=== PATIENT | male | born 1950 | race Caucasian/White ===

== ENCOUNTER → 2018-07-25 07:23 | Outpatient (CLI) | payer BC, SELFPAY ==
--- NOTE | 2018-07-25 | DI.ECHO.S_ITS ---
[facility]---------+ [facility] +---------+ : : [address] : : : : [id number] : : : : Phone: [phone]+ Echocardiogram Report + + :Name: YOU SCOTT Study Date: 07/25/2018 Height: 70 in : :[facility] Exam Location: [facility] Weight: 290 lb : : Gender: Male BSA: 2.4 m2 : :: 1950 Age: 67 yrs BP: 114/78 mmHg: :Reason For Study: CAD : : Performed By: Trey Ross : :Referring: DAVID OTT : + + Interpretation Summary The left ventricle is mildly dilated which has not changed. Left ventricular systolic function is normal without focal wall motion abnormalities. The ejection fraction is estimated to be 55-60%. LVEF has remained unchanged. Diastolic parameters suggest a relaxation abnormality of the left ventricle, consistent with probable normal filling pressures. The right ventricle grossly appears normal in size with probable normal systolic function. Pulmonary artery pressures cannot be estimated because of the lack of a measurable TR jet velocity. Both atria are mildly dilated. There is no significant valvular heart disease. The ascending aorta is mildly enlarged, which has not significantly changed since prior study. Procedure: A two-dimensional transthoracic echocardiogram with color flow and Doppler was performed. The study quality was technically adequate. A contrast injection of Definity was performed to improve assessment of LV function. Comparison is made with the echocardiogram of 09/04/15. The subcostal views were difficult to obtain and are suboptimal in quality. The patient was in normal sinus rhythm during the exam. Left Ventricle: The left ventricle is mildly dilated. Left ventricular wall thickness is borderline increased. Left ventricular systolic function is normal without focal wall motion abnormalities. The ejection fraction is estimated to be 55-60%. Diastolic parameters suggest a relaxation abnormality of the left ventricle, consistent with probable normal filling pressures. Right Ventricle: The right ventricle grossly appears normal in size with probable normal systolic function. Atria: Both atria are mildly dilated. The interatrial septum is intact with no evidence for an atrial septal defect. Mitral Valve: The mitral valve is normal in structure and function. There is trace mitral regurgitation. Aortic Valve: The aortic valve is trileaflet. The aortic valve opens well. No aortic regurgitation is present. Tricuspid Valve: The tricuspid valve is normal in structure and function. There is trace tricuspid regurgitation. Pulmonary artery pressures cannot be estimated because of the lack of a measurable TR jet velocity. Pulmonic Valve: The pulmonic valve is normal in structure and function. There is trace pulmonic regurgitation. There is no significant valvular heart disease. Great Vessels: The aortic root is normal size. The ascending aorta is mildly enlarged. The pulmonary artery is normal size. The inferior vena cava was not well visualized. Pericardium/ Pleura There is no pericardial effusion. There is no pleural effusion. MMode/2D Measurements & Calculations LVIDd: 6.2 cm LVOT diam: 2.4 cm LVIDs: 3.7 cm Ao root diam: 3.9 cm FS: 40.5 % asc Aorta Diam: 3.9 cm EPSS: 0.51 cm Ao Arch Diam (Prox Trans): 3.5 cm IVSd: 0.98 cm LVPWd: 1.1 cm LV mahmood. diameter/BSA (cm/m^2): 2.5 LV sys. diameter/BSA (cm/m^2): 1.5 LA dimension: 5.8 cm RA long axis: 5.5 cm LA A2 area: 21.1 cm2 RA area: 22.6 cm2 LA A4 area: 29.3 cm2 RA vol: 79.7 ml LA length (vol): 5.8 cm RA : 32.6 ml/m2 LA vol: 90.6 ml LA vol index: 37.1 ml/m2 Doppler Measurements & Calculations Ao V2 max: 137.0 cm/sec LVOT Max Jaron: 91.0 cm/sec Ao V2 mean: 106.4 cm/sec LV V1 max P.3 mmHg Ao max P.5 mmHg LV V1 VTI: 20.3 cm Ao mean P.7 mmHg GUILLERMO(I,D): 3.2 cm2 Ao V2 VTI: 29.5 cm GUILLERMO(V,D): 3.1 cm2 sev ratio: 0.69 GUILLERMO indexed to BSA (cm^2/m^2): 1.3 MV E max jaron: 71.6 cm/sec PA V2 max: 94.0 cm/sec MV A max jaron: 87.2 cm/sec PA V2 mean: 64.5 cm/sec MV E/A: 0.82 PA mean P.9 mmHg Med Peak E' Jaron: 5.2 cm/sec PA pr(Accel): 9.1 mmHg E/E' med: 13.9 Lat Peak E' Jaron: 9.2 cm/sec E/E' lat: 7.8 E/e' average: 10.8 MV dec time: 0.20 sec SV(LVOT): 94.3 ml Reading Physician:EVERARDO
--- NOTE | 2018-07-25 09:02 | P.PCN_ITS ---
Cardiac Stress Test Report Referral & Results Date Patient Seen: 07/25/18 Requesting provider: David Ott Indication: Coronary artery disease Rest ECG: Unremarkable Procedure Note: Today following both written and verbal informed consent the patient was exercised according to a standard Cory protocol patient went for a total of 6 min 25 sec achieving a maximum heart rate of about 120 (motion artifact interfered with ability to determine true heart rate will while active ) maximum systolic blood pressure of to 30. This is approximately 7.0 METS. Exercise was terminated at this point because of patient fatigue and inability to continue. Patient was also given Cardiolite through a previously started Hep-Lock IV by the non licensed nuclear plant operator approximately 1 minute prior to the cessation of exercise. With exercise there was lots of motion artifact. At the immediate and exercise patient did have inferior T-wave inversions and flat mild ST segment depression as well as flat downsloping ST segment changes in leads V5 V6 mostly V6. Rare PVCs including couplets and triplets that were multifocal in origin were noted in recovery as well Functional aerobic impairment rated 10% on the sedentary scale Impression: Ischemic changes as above. Perfusion imaging to be reported separately and will presumably provide more information regarding degree of ischemia Average exercise capacity Ventricular Dysrhythmia as above Please note: Actual ECG tracings can be found in the PACS system.
--- NOTE | 2018-07-25 10:00 | DI.NM.S_ITS ---
PATIENT NAME: YOU SCOTT : 1950 EXAM DATE: 07/25/2018 8:31 ORD. : SHANE SLAUGHTER M.D. CC: MODALITY: NM PATIENT TYPE: Out CONTRAST MEDIA: STATION ID: [id number] FLUORO TIME: PROCEDURE: NM DINESH PERF SPECT REST & STR Rest and exercise myocardial perfusion SPECT with gated imaging and ejection fraction RADIOPHARMACEUTICAL: 25.1 mCi Tc-99m sestamibi IV at rest and 25.6 mCi Tc- 99m sestamibi IV at peak exercise. A 4-syl-afkhjhiu was performed. INDICATIONS: Atherosclerotic heart disease of [place] coronary arteries TECHNIQUE: Radiopharmaceutical was injected at peak stress test, and also at rest. SPECT images were obtained. SPECT myocardial perfusion images were displayed in short axis, horizontal long axis, and vertical long axis views. Gated images were reviewed using Tag'By software. COMPARISON: None. CARDIAC STRESS: A standard Cory treadmill exercise tolerance test was performed by the patient under the supervision of an attending staff. The patient exercised for 6 minutes and 25 seconds; functional aerobic impairment (DEXTER) is 10 %. Hemodynamic data: There is hypertensive blood pressure and appropriate heart rate response to exercise stress. Patient achieved 94% of maximum predicted heart rate at peak exercise. Symptoms: Patient denied chest pain during exercise. Patient has fatigue and dyspnea with exercise. EKG: There was horizontal and downsloping ST depression in the inferior and lateral leads, up to 3 mm and inferiorly at 2 mm in lateral leads at peak exercise which improved during the recovery. FINDINGS: Raw data: There is good myocardial labeling by radiotracer. No significant motion artifacts. Pkyi-yf-diocb ratio is 0.41 (normal is less than 0.38 for sestamibi tracer, and less than 0.50 for thallium tracer). Continued Report - Page 2 of 2 PATIENT NAME: YOU SCOTT : 1950 EXAM DATE: 07/25/2018 8:31 ORD. : SHANE SLAUGHTER M.D. CC: MODALITY: NM PATIENT TYPE: Out CONTRAST MEDIA: STATION ID: [id number] FLUORO TIME: Left ventricle function: Gated images demonstrate hypokinesis of the apex; Otherwise normal left ventricle wall thickening. No other segmental wall motion abnormality. No transient ischemic dilation; TID is 1.03 (normal less than 1.3). The left ventricle resting end-diastolic volume is 184 mL. Left ventricle stress ejection fraction is 53%; normal values are above 45%. Myocardial perfusion: The myocardial perfusion image quality suboptimal with significant heterogeneity in the distribution of the tracer. There is a moderate size apical anterior and apical septal defect which is present both at rest and stress. This improves with prone imaging although it does not completely resolve. There is a second perfusion defect of moderate size in the inferior and inferoseptal wall on the stress imaging with improvement at rest. IMPRESSION: -Abnormal myocardial perfusion study with evidence of reversible ischemia in the inferior wall and scar at the apex. -The treadmill portion was also abnormal with up to [address] depression in inferior and inferolateral leads. Please note the patient was significantly hypertensive at peak stress with the pressure of 230/80 mmHg. -The stress ejection fraction was 53%. The rest ejection fraction was 60% and overall the left ventricle appear slightly hypokinetic on the stress of compared to rest. Please note that this was a 2-day study. - Afmp-bp-fqhda ratio is 0.41 (normal is less than 0.38 for sestamibi tracer) Dictated by: Crow Cantrell on 07/27/2018 at 0:01 Approved by: Crow Cantrell on 07/27/2018 at 0:18
== END ==
PROVIDERS: Family Provider Family Medicine; PCP Family Medicine; Visit Provider Internal Medicine Cardiovascular Disease
DX: I25.9 Chronic ischemic heart disease, unspecified (principal); I25.10 Atherosclerotic heart disease of native coronary artery without angina pectoris; I47.0 Re-entry ventricular arrhythmia
CPT/HCPCS: 78452; 93016; 93017; 93018; A9502; C8929; Q9957

== ENCOUNTER → 2019-12-25 09:10 | Outpatient (CLI) | payer OTHER, SELFPAY ==
--- NOTE | 2019-12-25 | DI.ECHO.S_ITS ---
[facility] +---------+ [facility] +---------+ : : [address] : [address] : : : : [id number] : : : : Phone: [phone]+ Echocardiogram Report + + :Name: YOU SCOTT Study Date: 12/25/2019 Height: 70 in : :[facility] Weight: 290 lb : : Gender: Male BSA: 2.4 m2 : :: 1950 Age: 69 yrs BP: 155/72 mmHg: :Reason For Study: ISCHEMIC HD : : Performed By: Trey Ross : :Referring: UNSPECIFIED : + + Interpretation Summary Mild concentric left ventricular hypertrophy with ejection fraction 60-65%. Mildly dilated right ventricle with normal right ventricular systolic function. Mildly dilated both atria. No significant valvular abnormality. Comparison is made with the echocardiogram of 07/25/18, there has been no significant change. Procedure: A two-dimensional transthoracic echocardiogram with color flow and Doppler was performed. The study quality was technically difficult. Comparison is made with the echocardiogram of 07/25/18. A contrast injection of Definity was performed to improve assessment of LV function. The subcostal views were difficult to obtain and are suboptimal in quality. The patient was in normal sinus rhythm during the exam. Left Ventricle: The left ventricle is normal in size. There is mild concentric left ventricular hypertrophy. The ejection fraction is estimated to be 60-65%. There are no focal wall motion abnormalities. Right Ventricle: The right ventricle is mildly dilated. The right ventricular systolic function is normal. Atria: Both atria are mildly dilated. The interatrial septum is intact with no evidence for an atrial septal defect. Mitral Valve: The mitral valve is normal in structure and function. There is trace mitral regurgitation. Aortic Valve: The aortic valve is trileaflet. The aortic valve is mildly calcified. The aortic valve opens well. No aortic regurgitation is present. Tricuspid Valve: The tricuspid valve is normal in structure and function. There is trace tricuspid regurgitation. Right ventricular systolic pressure is estimated to be 24 mmHg plus the clinically estimated CVP which cannot be estimated on this exam. Pulmonic Valve: The pulmonic valve is normal in structure and function. There is trace pulmonic regurgitation. Great Vessels: The aortic root is normal size. The ascending aorta could not be visualized. The pulmonary artery is normal size. The inferior vena cava was not visualized. Pericardium/ Pleura There is no pericardial effusion. There is no pleural effusion. MMode/2D Measurements & Calculations LVIDd: 5.6 cm LVOT diam: 2.4 cm LVIDs: 3.3 cm Ao root diam: 3.8 cm FS: 40.2 % Ao Arch Diam (Prox Trans): 3.3 cm EPSS: 0.22 cm IVSd: 1.2 cm LVPWd: 1.3 cm LV mahmood. diameter/BSA (cm/m^2): 2.3 LV sys. diameter/BSA (cm/m^2): 1.4 LA dimension: 5.6 cm RA long axis: 5.0 cm LA A2 area: 25.8 cm2 RA area: 22.1 cm2 LA A4 area: 27.3 cm2 RA vol: 84.2 ml LA length (vol): 6.0 cm RA : 34.4 ml/m2 LA vol: 99.0 ml LA vol index: 40.5 ml/m2 RVD1 (basal): 5.0 cm RVD2 (mid): 4.4 cm TAPSE: 1.7 cm Doppler Measurements & Calculations Ao V2 max: 146.4 cm/sec LVOT Max Jaron: 107.7 cm/sec Ao V2 mean: 113.6 cm/sec LV V1 max P.6 mmHg Ao max P.6 mmHg LV V1 VTI: 24.5 cm Ao mean P.5 mmHg GUILLERMO(I,D): 3.4 cm2 Ao V2 VTI: 32.4 cm GUILLERMO(V,D): 3.3 cm2 sev ratio: 0.76 GUILLERMO indexed to BSA (cm^2/m^2): 1.4 MV E max jaron: 98.6 cm/sec TR max jaron: 243.0 cm/sec MV A max jaron: 78.9 cm/sec TR max P.6 mmHg MV E/A: 1.2 PA V2 max: 101.1 cm/sec Med Peak E' Jaron: 4.6 cm/sec PA V2 mean: 79.2 cm/sec E/E' med: 21.3 PA mean P.6 mmHg Lat Peak E' Jaron: 9.2 cm/sec PA pr(Accel): 10.5 mmHg E/E' lat: 10.8 E/e' average: 16.0 MV dec time: 0.17 sec SV(LVOT): 110.8 ml Electronically signed by: Bianka Felipe on Reading Physician:12/25/2019 03:29 PM
== END ==
PROVIDERS: Family Provider Family Medicine; PCP Family Medicine; Referring Provider Neuromusculoskeletal Medicine, Sports Medicine; Visit Provider Neuromusculoskeletal Medicine, Sports Medicine
DX: I25.10 Atherosclerotic heart disease of native coronary artery without angina pectoris (principal)
CPT/HCPCS: 93306; Q9957

== ENCOUNTER → 2024-05-22 08:54 | Outpatient (CLI) | payer OTHER, SELFPAY ==
--- NOTE | 2024-05-22 08:57 | DI.RAD.S_ITS ---
PROCEDURE: XR KNEE RT 3V INDICATIONS: arthritis TECHNIQUE: 3 views of the knee were acquired. COMPARISON: None. FINDINGS: Bones: Moderate degenerative changes particularly in the medial compartment. Patellar enthesopathy. No acute displaced fracture or dislocation Soft tissues: Small joint effusion. IMPRESSION: Moderate arthrosis. Patellar enthesopathy. Small joint effusion. If there is high concern for further derangement, consider MRI evaluation. Dictated by: Arnulfo Morel M.D. on 05/22/2024 at 12:15 Approved by: Arnulfo Morel M.D. on 05/22/2024 at 12:16
--- NOTE | 2024-05-22 08:57 | DI.RAD.S_ITS ---
PROCEDURE: XR KNEE LT 3V INDICATIONS: arthritis TECHNIQUE: 3 views of the knee were acquired. COMPARISON: None. FINDINGS: Bones: Moderate to severe arthrosis especially in the medial compartment. No acute displaced fracture or dislocation. Periarticular bone fragments and patellar enthesopathy also seen Soft tissues: Surgical clips. [id number]-qx-uhmftxqg joint effusion. IMPRESSION: Advanced degenerative changes, peripatellar nonacute appearing bone fragments, enthesopathy, and [id number]-pd-yowyxfzk joint effusion. If there is high concern for further derangement, consider MRI evaluation. Surgical clips are present in the soft tissues. Dictated by: Arnulfo Morel M.D. on 05/22/2024 at 12:14 Approved by: Arnulfo Morel M.D. on 05/22/2024 at 12:15
== END ==
PROVIDERS: Family Provider Family Medicine; PCP Internal Medicine; Referring Provider Chiropractor; Visit Provider Chiropractor
DX: M17.0 Bilateral primary osteoarthritis of knee (principal); M25.461 Effusion, right knee; M25.462 Effusion, left knee
CPT/HCPCS: 73562